=== PATIENT | male | born 1985 | race Caucasian/White ===

== ENCOUNTER 2017-01-15 21:13 | Emergency (ER) | payer BC ==
[2017-01-15 21:19] VITALS: BP 125/67; BMI 37.3
[2017-01-15] MEDS ORDERED: XYLOCAINE 1 % (PLAIN) ONE (21:20)
[2017-01-15] MEDS ORDERED: XYLOCAINE 1% and EPINEPHRINE 1:100,000 ONE (21:21)
--- NOTE | 2017-01-15 21:45 | DR.LACERAT ---
HPI - Time Seen Time seen: 21:25 - Primary Care Physician Primary Care Physician: stephan - Complaints Chief Complaint:: rt pinky finger cut with a knife - Source History Provided: Patient - Mode of Arrival Mode of Arrival: Ambulatory - Timing Onset of Chief Complaint: 01/15/17 PMH - PMH Past Medical History: No Past Surgical History: Yes Surgical History: Appendectomy Past Surgical History Comment: lt thumb - Family History History of Family Medical Conditions: No - Social History Does patient currently use any type of tobacco product: No Have you used tobacco products in the last 12 months: No Type of Tobacco Use: None Does any household member use tobacco: No Alcohol Use: None Do you use any recreational Drugs:: No Lives With: Family Lives Where: Home - infectious screening In the last 2 months have you had wt loss of >10#?: NO Have you had fever, night sweats or hemotysis?: No Have you traveled outside the country in the last 6 months?: No Isolation: Standard ROS - Review of Systems Constitutional: No Symptoms Reported Eyes: No Symptoms Reported ENTM: No Symptoms Reported Respiratoy: No Symptoms Reported Cardiovascular: No Symptoms Reported Gastrointestinal/Abdominal: No Symptoms Reported Genitourinary: No Symptoms Reported Neurological: No Symptoms Reported Musculoskeletal: No Symptoms Reported Integumentary: No Symptoms Reported Hematologic/Lymphatic: No Symptoms Reported Endocrine: No Symptoms Reported Psychiatric: No Symptoms Reported All Other Systems: Reviewed and Negative PE - Vital Signs Vitals: Temperature 97.6 F Pulse Rate 96 Respiratory Rate 16 Blood Pressure 125/67 O2 Sat by Pulse Oximetry 96 - General Limitations: No Limitations General Appearance: Alert, In No Apparent Distress - Head Head Exam: Normal Inspection, Atraumatic - ENT ENT Exam: Normal Exam, Normal Oropharynx - Neck Neck Exam: Normal Inspection, Full ROM - Chest Chest Inspection: Normal Inspection - Cardiovascular Cardiovascular Exam: Regular Rate, Normal Rhythm - Extremities Extremities Exam: Full ROM, Other (laceration of right 5th digit) - Back Back Exam: Normal Inspection, Full ROM - Neurologic Neurological Exam: Alert, Oriented X3, CN II-XII Intact - Psychiatric Psychiatric Exam: Normal Affect, Normal Mood - Skin Skin Exam: Warm, Dry Procedures - Laceration/Wound Repair Right 4th Digit Wound Length (cm): 2 Wound's Depth, Shape: Superficial, Linear Wound Explored: clean Betadine Prep?: Yes Anesthesia: 1% Lidocaine w/ Epi Volume Anesthetic (ccs): 7 Suture Size/Type: 5:0, Ethilion Number of Sutures: 3 - Diagnosis Discharge Problem: Laceration Laceration of finger Qualifiers: Encounter type: initial encounter Finger: little finger Damage to nail status: unspecified Foreign body presence: without foreign body Laterality: right Qualified Code(s): S61.216A - Laceration without foreign body of right little finger without damage to nail, initial encounter - Discharge Plan Condition: Stable - Follow ups/Referrals Follow ups/Referrals: Abelardo Gonzalez [Primary Care Provider] - 3 days - Instructions
[2017-01-15] MEDS ORDERED: NEOSPORIN OINT ONE (21:47)
== END 2017-01-15 21:57 | disposition home or self-care (01) ==
LOC: ER 21:13
PROC: 0XQV0ZZ Repair Right Little Finger, Open Approach (ICD-10-PCS; principal; 2017-01-15)
DX: S61.216A Laceration without foreign body of right little finger without damage to nail, initial encounter (principal); W26.0XXA Contact with knife, initial encounter; Y92.9 Unspecified place or not applicable
CPT/HCPCS: 99282; J2001